=== PATIENT | male | born 1955 | race Caucasian/White ===

== ENCOUNTER 2018-12-15 04:05 | Emergency (ER) | payer OTHER, SELFPAY ==
[2018-12-15 04:05] VITALS: BP 139/94; PULSE 80; RESP 16; TEMP 36.6; O2SAT 97; BMI 32.1
--- NOTE | 2018-12-15 04:12 | ED.GENADULT ---
HPI - General Adult General Chief complaint: Neck Pain/Injury Stated complaint: head/ neck pain Time Seen by Provider: 12/15/18 04:07 Source: patient Mode of arrival: ambulatory Limitations: no limitations History of Present Illness HPI narrative: 63 year old male here for evaluation of right posterior neck pain. states that has been going on for the past couple days. It is worse to touch but not was worse when he moves his head. No fevers. He did think that it started in his right ear but now his right ear has no symptoms. He also has a rash on his chin on the right-hand side. He states this is ?uncomfortable? he did state that it started as blisters. Has been taken some Advil but no other interventions prior to arrival Related Data Previous Rx's Medication Instructions Recorded acyclovir 800 mg PO 5XD 7 Days #35 tab 12/15/18 Review of Systems Constitutional Constitutional: Denies fever(s) and Denies headache(s) ENT Ears, Nose, Mouth, and Throat: Denies headache(s), Reports neck pain and Denies sore throat Cardiovascular Cardiovascular: Denies chest pain and Denies dyspnea Respiratory Respiratory: Denies dyspnea Gastrointestinal Gastrointestinal: Denies abdominal pain Genitourinary Genitourinary: Denies difficulty urinating Musculoskeletal Musculoskeletal: Denies myalgias, Denies arthralgias and Reports neck pain Integumentary/Breasts Skin/Breast: Reports rash Neurologic Neurologic: Denies behavioral changes and Denies headache(s) Psychiatric Psychiatric: Denies behavioral changes Hematologic/Lymphatic Hematologic/Lymphatic: Denies easy bleeding and Denies easy bruising [facility] Medical History Patient denies medical problems (Acute) Family History (Updated 02/08/15 @ 00:00 by CARLOTTA Frost) Brother Age: 62 Type 2 diabetes mellitus without complication Mother Age: 87 Type 2 diabetes mellitus with complication Social History Smoking Status: Never smoker Family History (Updated 02/08/15 @ 00:00 by CARLOTTA Frost) Brother Age: 62 Type 2 diabetes mellitus without complication Mother Age: 87 Type 2 diabetes mellitus with complication Social History (Reviewed 12/15/18 @ 04:44 by JUDITH Gutierrez Smoking Status: Never smoker Exam Initial Vital Signs Initial Vital Signs: Vital Signs Temperature 97.8 F 12/15/18 04:05 Pulse Rate 80 12/15/18 04:05 Respiratory Rate 16 12/15/18 04:05 Blood Pressure 139/94 H 12/15/18 04:05 Pulse Oximetry 97 12/15/18 04:05 Const General: cooperative, healthy appearing, comfortable, well developed, well groomed and No acute distress Orientation: alert, awake and oriented x3 HENMT Head: normal to inspection Ears: TM's normal bilaterally Nose: external nose normal Mouth: oral mucosae normal Neck Lymphatic: lymphadenopathy (Occipital) Resp Effort & Inspection: normal respiratory effort Auscultation: clear to auscultation bilaterally Cardio Rate: regular rate Skin Other: Patient with what appears to be a vesicular rash under his chin on the right side. He also has a vesicular rash above his right ear. Neuro General: alert and awake Cognition: normal cognition Speech: speech normal Extrem General: normal to inspection and capillary refill normal Course Vital Signs Vital signs: Vital Signs - 8 hr 12/15/18 04:05 Temperature 97.8 F Pulse Rate 80 Respiratory Rate 16 Blood Pressure 139/94 H Pulse Oximetry 97 Medical Decision Making MDM Narrative Medical decision making narrative: He is nontoxic appearing. His neck pain appears to be either musculoskeletal or lymphadenopathy in the occipital region on the right. He does have a rash under his chin on the right and above his right ear which is fairly consistent with shingles. Mildly hesitation is that and does not seem to be uncomfortable for him. I feel that given the possibility of the occipital lymphadenopathy which would suggest an infection in the look of the rash that starting him on antiviral medications is warranted. I did discuss this with him and he expressed agreement. He does not appear to have any lesions in his right ear. We discussed return precautions and follow-up instructions. He expressed understanding and agreement with plan. Discharge Plan Departure Patient Disposition: Home Clinical Impression: Lymphadenopathy Shingles outbreak Qualifiers: Herpes zoster complications: without complications Qualified Code(s): B02.9 - Zoster without complications Discharge Date/Time: 12/15/18 04:37 Instructions: DI for Shingles, DI for Lymphadenopathy Activity Restrictions/Additional Instructions: You can continue with the nonsteroidal anti-inflammatories such as Advil. I would also recommend you start on the shingles medication like we discussed. Contact her primary doctor for follow-up. Return to the emergency department for any new or worsening symptoms Prescriptions: New acyclovir 800 mg tablet 800 mg PO 5XD 7 Days Qty: 35 RF: 0 Referrals: Justin Santizo MD [Primary Care Provider] -
== END 2018-12-15 04:37 | disposition home or self-care (01) ==
PROVIDERS: Emergency Provider Emergency Medicine; Family Provider Family Medicine; PCP Family Medicine
DX: B02.9 Zoster without complications (principal); R59.0 Localized enlarged lymph nodes
CPT/HCPCS: 99282

== ENCOUNTER → 2019-03-06 13:55 | Outpatient (CLI) | payer OTHER, SELFPAY ==
[2019-03-06 15:27] LABS: Alanine Aminotransferase 31 IU/L (<50); Albumin 4.1 g/dL (3.5-5.0); Albumin Globulin Ratio 1.5 (1.0-2.8); Alkaline Phosphatase 105 U/L (38-126); Aspartate Aminotransferase 27 IU/L (17-59); Bilirubin Total 0.4 mg/dL (0.2-1.3); Blood Urea Nitrogen 15 mg/dL (9-20); Carbon Dioxide 23 mmol/L (22-32); Chloride 105 mmol/L (98-107); Cholesterol 274 mg/dL (140-199); Estimated Glomerular Filt Rate > 60.0 mL/min (>60); Globulin 2.7 g/dL (1.7-4.1); Glucose 125 mg/dL (80-110); HDL Cholesterol 30 mg/dL (40-60); HEMOLYSIS < 15 (0-50); Potassium 4.2 mmol/L (3.4-5.1); Sodium 139 mmol/L (137-145); Total Protein 6.8 g/dL (6.3-8.2); Triglycerides 488 mg/dL (35-150)
[2019-03-06 15:58] LABS: Prostate Specific Antigen Scrn 4.91 ng/mL (0.1-4.0); TSH w/ Reflex to FT4 2.57 uIU/mL (0.47-4.68)
[2019-03-06 16:07] LABS: Vitamin D 25 Hydroxy (D3) 16.4 ng/mL (30.0-100.0)
== END ==
PROVIDERS: PCP Student in an Organized Health Care Education/Training Program; Visit Provider Student in an Organized Health Care Education/Training Program
DX: Z12.5 Encounter for screening for malignant neoplasm of prostate (principal); E78.2 Mixed hyperlipidemia; I49.3 Ventricular premature depolarization; R00.0 Tachycardia, unspecified; E55.9 Vitamin D deficiency, unspecified
CPT/HCPCS: 36415; 80053; 80061; 82306; 84443; G0103

== ENCOUNTER → 2021-08-03 09:19 | Outpatient (CLI) | payer OTHER, SELFPAY ==
[2021-08-03 10:52] LABS: Add Manual Diff / Slide Review NO; Basophils Absolute Auto 100 /uL (0-100); Eosinophils Absolute Auto 500 /uL (0-450); Eosinophils Percent Auto 6.3 % (2-4); Hematocrit 40.6 % (41-53); Lymphocytes Absolute Auto 1300 /uL (1100-4500); Lymphocytes Percent Auto 15.8 % (25-40); Mean Corpuscular HGB Conc 34.4 % (30-36); Mean Corpuscular Hemoglobin 28.7 PG (26-34); Mean Corpuscular Volume 83.5 fL (80-100); Monocytes Absolute Auto 600 /uL (0-900); Monocytes Percent Auto 7.8 % (3-14); Neutrophils Absolute Auto 5500 /uL (1500-7000); Neutrophils Percent Auto 69.1 % (50-75); Platelet Count 217 X10^3/uL (150-400); Red Blood Cell Count 4.86 X10^6/uL (4.5-5.9); Red Cell Distribution Width 14.6 % (11.6-14.8)
[2021-08-03 11:08] LABS: Hemoglobin A1C% w Est Avg Glu 6.2 % (4.0-6.0)
[2021-08-03 11:19] LABS: Albumin 3.9 g/dL (3.5-5.0); BUN Creatinine Ratio 15.7 (6-22); Blood Urea Nitrogen 17 mg/dL (9-20); Calcium 8.9 mg/dL (8.4-10.2); Carbon Dioxide 25 mmol/L (22-32); Chloride 107 mmol/L (98-107); Cholesterol 257 mg/dL (140-199); Estimated Glomerular Filt Rate > 60 mL/min (>60); Glucose 96 mg/dL (80-110); HDL Cholesterol 33 mg/dL (40-60); HEMOLYSIS < 15 (0-50); LDL Cholesterol Calculated 148 mg/dL (<100); Potassium 4.1 mmol/L (3.4-5.1); Sodium 140 mmol/L (137-145); Triglycerides 380 mg/dL (35-150)
[2021-08-03 11:25] LABS: NT-proBNP (BNP-Adult 18+) 15 pg/mL (<125)
[2021-08-03 11:31] LABS: Vitamin D 25 Hydroxy (D3) 27.8 ng/mL (30.0-100.0)
[2021-08-03 11:47] LABS: Prostate Specific Antigen Scrn 7.34 ng/mL (0.1-4.0)
== END ==
PROVIDERS: PCP Student in an Organized Health Care Education/Training Program; Referring Provider Student in an Organized Health Care Education/Training Program; Visit Provider Student in an Organized Health Care Education/Training Program
DX: E55.9 Vitamin D deficiency, unspecified (principal); E78.2 Mixed hyperlipidemia; R60.9 Edema, unspecified; R73.9 Hyperglycemia, unspecified; R97.20 Elevated prostate specific antigen [PSA]; Z12.5 Encounter for screening for malignant neoplasm of prostate
CPT/HCPCS: 36415; 80048; 80061; 82040; 82306; 83036; 83880; 85025; G0103

== ENCOUNTER → 2021-12-25 09:40 | Outpatient (CLI) | payer MEDICARE, SELFPAY ==
[2021-12-25 12:58] LABS: Prostate Specific Antigen 7.78 ng/mL (0.10-4.00)
== END ==
PROVIDERS: PCP Student in an Organized Health Care Education/Training Program; Referring Provider Specialist; Visit Provider Specialist
DX: R97.20 Elevated prostate specific antigen [PSA] (principal)
CPT/HCPCS: 36415; 84153

== ENCOUNTER → 2021-12-28 08:49 | Outpatient (CLI) | payer MEDICARE, SELFPAY ==
[2021-12-28 09:42] LABS: COVID19 -Nasal RAPID Negative (Negative)
== END ==
PROVIDERS: PCP Student in an Organized Health Care Education/Training Program; Visit Provider Surgery
DX: Z20.822 Contact with and (suspected) exposure to COVID-19 (principal); Z01.812 Encounter for preprocedural laboratory examination
CPT/HCPCS: 87635; C9803

== ENCOUNTER 2021-12-29 09:20 | Day surgery (SDC) | payer MEDICARE, SELFPAY ==
--- NOTE | 2021-12-29 | PATH_ITS ---
[facility] Accession Number: [id number] . 01 Material submitted: . PART A: colon - CECAL POLYP PART B: rectum - RECTAL POLYP . 01 Diagnosis: A. Cecal Polyp, Biopsy: Tubular adenoma. . B. Rectal Polyp, Biopsy: Tubulovillous adenoma. Additional polypoid fragment of inflamed granulation tissue. No high-grade dysplasia or malignancy. MRV 01/03/2022 1328 Local . 01 Electronically signed: . Quin Lucero MD, Pathologist NPI- [id number] . 01 Gross description: . Part A: CECAL POLYP: Received in formalin is 1 fragment(s) of allen, soft tissue measuring 0.8 x 0.1 x 0.1 cm submitted entirely in 1 cassette(s) Part B: RECTAL POLYP: Received in formalin are 2 fragment(s) of allen, soft tissue measuring 0.7 x 0.5 x 0.5 cm to 0.4 x 0.3 x 0.2 cm submitted entirely in 1 cassette(s) /CPE 01/02/2022 0534 Local . 01 Pathologist provided ICD-10: D12.0, D12.8 . 01 CPT . 336574, 019776 Specimen Comment: A courtesy copy of this report has been sent to [facility] Performed at: 01 [facility] [address] [place] [address] [address], [place], [place] [id number] MD Nelson Acosta MD Phone: [phone]
[2021-12-29 09:42] VITALS: BMI 34.7
[2021-12-29 09:48] VITALS: BP 129/80; PULSE 78; RESP 16; TEMP 36.4; O2SAT 95
[2021-12-29] MEDS: LACTATED RINGERS 1,000 ML 84 ML IV ×2 (09:49→10:01)
--- NOTE | 2021-12-29 09:54 | P.HP_ITS ---
History of Present Illness History of Present Illness Chief complaint: Colonoscopy - screening Narrative: Mr. Cha presents for a screening colonoscopy today. he denies bleeding from below or any family history of colon cancer. He denies constipation but he recalls that he has had chronic diarrhea for several years running and never been any offered any explanation or if treatment that he felt was serious. There are no family history of bleeding or blood clotting disorders or problems with anesthesia he had Anesthesia when he was 15 years old for a nose surgery otherwise never had surgery. Patient History Medical History BPH w urinary obs/LUTS Male circumcision Rosacea (07/18/15) Seborrheic keratosis (07/18/15) Skin tag (07/18/15) Family & Social History Family History Brother Age: 65 Type 2 diabetes mellitus without complication Mother Age: 90 Type 2 diabetes mellitus with complication FH: CVA (cerebrovascular accident) Diabetes mellitus Father CAD in [place] artery Grandfather Cancer Social History: household members spouse Tobacco & Substance use: Smoking Status Never smoker alcohol intake current alcohol intake frequency holiday/special occasion Substance Use Type does not use Meds Home Medications and Allergies Home Medications Medication Instructions Recorded Confirmed Type aspirin 81 mg tablet,delayed 81 mg PO DAILY 08/04/21 12/29/21 History release (Adult Low Dose Aspirin) pravastatin 20 mg tablet 20 mg PO BEDTIME #90 tabs 09/11/21 12/29/21 Rx tamsulosin 0.4 mg capsule 0.4 mg PO BEDTIME #90 caps 09/21/21 12/29/21 Rx Allergies Allergy/AdvReac Type Severity Reaction Status Date / Time No Known Drug Allergies Allergy Verified 12/29/21 09:42 Exam Vital Signs (past 8 hours): - 12/29/21 09:48 Temperature 97.6 F Pulse Rate 78 Respiratory Rate 16 Blood Pressure 129/80 Pulse Oximetry 95 Oxygen Delivery Method Room Air Oxygen Delivery Method Room Air Const General: cooperative, healthy appearing and comfortable [facility] Head: normal to inspection Eyes General: appearance normal, both eyes and all related structures Neck Other: thick Resp Effort & Inspection: normal respiratory effort and able to speak in complete sentences Cardio Rate: regular rate GI Inspection: normal to inspection, large pannus and obesity Palpation: soft and No tender Assessment & Plan Assessment and plan (1) Obesity (BMI 35.0-39.9 without comorbidity): Status: Acute (2) Obstructive sleep apnea: Status: Acute (3) Screening for colon cancer: Status: Acute Plan I discussed the risks benefits and alternatives to screening colonoscopy under conscious sedation. The patient has obstructive sleep apnea and the risks of conscious sedation were discussed as well as the risks of colonoscopy including but not limited to perforation of the colon requiring surgery to repair. Patient understands the risks the benefits I discussed the benefits additionally at length in terms of screening for colon cancer prevention of colon cancer and treatment for early stage colon cancer with intent to cure. He understood the risks benefits and alternatives head and had no other questions. He did not find the prep pleasant but tolerated it well and would like to proceed. Time Spent With Patient Critical Care time: I spent a total of [] minutes of critical care time on this patient's care today; this time is exclusive of procedural time.
[2021-12-29] MEDS: MIDAZOLAM 5 MG/5 ML VIAL 4 MG IV (10:28)
[2021-12-29] MEDS: fentaNYL 100 MCG/2 ML INJ 150 MCG IV (10:53)
[2021-12-29] MEDS: MIDAZOLAM 5 MG/5 ML VIAL 1 MG IV (11:02)
[2021-12-29 11:44] VITALS: BP 130/84; PULSE 71; RESP 12; TEMP 36.9; O2SAT 96
--- NOTE | 2021-12-29 11:46 | PM.OP.COLON ---
Operative Date/Time/Diagnoses Date of procedure: 12/29/21 Pre-op diagnosis: screening colonoscopy Post-op diagnosis: other (diverticulosis and colon polyps) Procedure & Clinicians Same procedure as scheduled: Yes Indications: 66-year-old male presents for screening colonoscopy he has no alarming symptoms and no family history of colon cancer. Surgeon: Anna Winter Procedure Notes Procedure in detail: Patient taken to the endoscopy suite and placed in a left lateral decubitus position anesthesia was induced with 5 of Versed and 150 of fentanyl total for out throughout the procedure patient the patient was comfortable throughout prior to induction of anesthesia a time-out was performed. Digital rectal exam was performed and found normal this colonoscope was introduced into the colon and advanced throughout the colon with some difficulty entering into the cecum however with placing the patient in a supine position I was able to enter. A photograph was taken. A very small polyp was seen in the cecum and sampled with a biopsy forceps. Withdrawal then took a total of 37 minutes but the majority of the withdrawal time was used in the process of capturing a large rectal polyp. I did withdraw slowly enough to examine the remainder of the colon very carefully and did not see any other areas of concern. There were scattered diverticula throughout the sigmoid colon. The rectal colon polyp was snared with hot snare and 2 separate pieces were taken and biopsied but I examined the biopsy location and it appeared hemostatic at the end of the case I did not see a large amount of polyp left over however this was at least a 1.2 cm size of polyp. This will be sent to pathology. The patient tolerated the procedure well and went in good condition to the postoperative care unit Scope withdrawal time: 37 Sedation minutes: 83 Findings: divertiulosis and polyp(s) Specimen(s): other (1. Small Cecal polyp 2. Large rectal polyp) Complications: none Post-procedure Recommendations: Colonoscopy in 3 years Plan for aftercare: I recommend daily fiber supplements and a follow-up colonoscopy is required in 3 years given the size of the rectal polyp. This was discussed with Michelle by phone. Disposition: PACU
[2021-12-29 11:49] VITALS: BP 132/87; PULSE 67; RESP 16; O2SAT 95
[2021-12-29 11:53] VITALS: BP 131/79; PULSE 77; RESP 19; TEMP 36.7; O2SAT 94
== END 2021-12-29 12:20 | disposition home or self-care (01) ==
PROVIDERS: PCP Student in an Organized Health Care Education/Training Program; Referring Provider Surgery; Visit Provider Surgery
PROC: 0DJD8ZZ Inspection of Lower Intestinal Tract, Via Natural or Artificial Opening Endoscopic (ICD-10-PCS; CPT 45378; principal; 2021-12-29 10:45)
DX: Z12.11 Encounter for screening for malignant neoplasm of colon (principal); K57.30 Diverticulosis of large intestine without perforation or abscess without bleeding; D12.0 Benign neoplasm of cecum; D12.8 Benign neoplasm of rectum
CPT/HCPCS: 45385; 45380; 99152; 99153; J2250; J3010

== ENCOUNTER → 2022-02-20 13:47 | Outpatient (CLI) | payer MEDICARE, SELFPAY ==
[2022-02-21 07:42] LABS: PSA Free % 14.1 % (.); PSA, Total 7.8 ng/mL (0.0-4.0)
== END ==
PROVIDERS: PCP Student in an Organized Health Care Education/Training Program; Referring Provider Specialist; Visit Provider Specialist
DX: R97.20 Elevated prostate specific antigen [PSA] (principal)
CPT/HCPCS: 36415; 84153; 84154

== ENCOUNTER → 2024-07-01 07:14 | Outpatient (CLI) | payer MEDICARE, SELFPAY ==
[2024-07-01 07:57] LABS: Add Manual Diff / Slide Review NO; Basophils Absolute Auto 100 /uL (0-100); Basophils Percent Auto 1.2 % (0-2); Eosinophils Absolute Auto 500 /uL (0-450); Eosinophils Percent Auto 7.3 % (2-4); Hematocrit 41.2 % (41-53); Hemoglobin 14.2 g/dL (13.5-17.5); Lymphocytes Absolute Auto 1100 /uL (1100-4500); Lymphocytes Percent Auto 15.4 % (25-40); Mean Corpuscular HGB Conc 34.4 % (30-36); Mean Corpuscular Hemoglobin 29.4 PG (26-34); Mean Corpuscular Volume 85.5 fL (80-100); Monocytes Absolute Auto 600 /uL (0-900); Monocytes Percent Auto 7.7 % (3-14); Neutrophils Absolute Auto 5100 /uL (1500-7000); Neutrophils Percent Auto 68.4 % (50-75); Platelet Count 234 X10^3/uL (150-400); Red Blood Cell Count 4.82 X10^6/uL (4.5-5.9); White Blood Cell Count 7.4 X10^3/uL (4.5-11.0)
[2024-07-01 08:06] LABS: Hemoglobin A1C% w Est Avg Glu 7.6 % (4.0-6.0)
[2024-07-01 08:20] LABS: Alanine Aminotransferase 42 IU/L (<50); Albumin 3.9 g/dL (3.5-5.0); Albumin Globulin Ratio 1.5 (1.0-2.8); Alkaline Phosphatase 99 U/L (38-126); Aspartate Aminotransferase 34 IU/L (17-59); BUN Creatinine Ratio 12.6 (6-22); Bilirubin Total 0.6 mg/dL (0.2-1.3); Blood Urea Nitrogen 14 mg/dL (9-20); Calcium 9.2 mg/dL (8.4-10.2); Carbon Dioxide 24 mmol/L (22-32); Chloride 104 mmol/L (98-107); Cholesterol 274 mg/dL (140-199); Estimated Glomerular Filt Rate > 60 mL/min (>60); Globulin 2.6 g/dL (1.7-4.1); Glucose 174 mg/dL (80-110); HDL Cholesterol 33 mg/dL (40-60); HEMOLYSIS < 15 (0-50); LDL Cholesterol Calculated 171 mg/dL (<100); Potassium 4.3 mmol/L (3.4-5.1); Sodium 135 mmol/L (137-145); Total Protein 6.5 g/dL (6.3-8.2); Triglycerides 349 mg/dL (35-150); Uric Acid 6.6 mg/dL (3.5-8.5)
== END ==
PROVIDERS: PCP Family Medicine; Referring Provider Family Medicine; Visit Provider Family Medicine
DX: E78.2 Mixed hyperlipidemia (principal); R73.03 Prediabetes; Z12.5 Encounter for screening for malignant neoplasm of prostate; Z68.37 Body mass index [BMI] 37.0-37.9, adult; R60.9 Edema, unspecified; M79.673 Pain in unspecified foot; E66.9 Obesity, unspecified; Z76.89 Persons encountering health services in other specified circumstances
CPT/HCPCS: 36415; 80053; 80061; 83036; 84550; 85025; G0103

== ENCOUNTER → 2024-11-06 09:24 | Outpatient (CLI) | payer MEDICARE, SELFPAY ==
[2024-11-08 08:12] LABS: PSA, Total 12.6 ng/mL (0.0-4.0)
== END ==
LOC: LAB 09:25
PROVIDERS: PCP Family Medicine; Referring Provider Urology; Visit Provider Urology
DX: R97.20 Elevated prostate specific antigen [PSA] (principal)
CPT/HCPCS: 36415; 84153; 84154

== ENCOUNTER → 2024-12-11 08:29 | Outpatient (CLI) | payer MEDICARE, SELFPAY ==
--- NOTE | 2024-12-11 08:31 | DI.MRI.S_ITS ---
PROCEDURE: MR PELVIC PROSTATE PROTOCOL INDICATIONS: 69 y/o M w/ elevated PSA, please eval TECHNIQUE: Coronal HASTE, axial T1 FSE with fat saturation, 3-plane nonbreath-hold T2 FSE. After the administration of contrast, dynamic axial, delayed axial and coronal VIBE or 2-D FLASH with fat saturation through the pelvis. Diffusion weighted imaging and ADC was performed. COMPARISON: None. FINDINGS: Image quality: Diffusion weighted and dynamic contrast enhanced images are diagnostic. Prostate: Gland size is 3.4 x 4.7 x 4.2 cm; ellipsoid gland volume is 34.9 mL. PSA is 12.6. PSA density is 0.36. There is diffuse transition zone hypertrophy with mildly decreased T2 signal throughout the transition zone and inferiorly in the posterolateral peripheral zone bilaterally. A few nodular areas of decreased ADC signal, but no definite PI-RADS four or five lesions. One example is as follows: Lesion 1: Location: Right posterolateral transition zone at the mid gland to base level, diffusion sequence 25 image 12 corresponds to T2 sequence four image 12. A curvilinear focus best seen on diffusion, probably part of a BPH nodule. Size: 0.7 cm. T2W signal: Mildly hypointense, but similar to surrounding gland. DWI signal: Moderately hyperintense ADC signal: Moderately hypointense Enhancement: No Extracapsular extension: No PI-RADS score: Two Genitourinary system: Bladder wall thickness is normal. Distal ureters are non distended. Seminal vesicles and proximal vas deferens appear normal morphology. Bowel and peritoneum: Sigmoid diverticulosis. No pathologic free pelvic fluid. Inferior colon and small bowel loops are normal in caliber. Nodes and vessels: No pelvic or inguinal adenopathy by size criteria. Iliac vessels are normal in caliber. Soft tissues: Minimal right fat containing hernia. Bones: Marrow demonstrates normal overall signal, without lesions to suggest metastases. IMPRESSION: No PI-RADS four or PI-RADS five lesions for a targeted biopsy. Given high PSA density, random multi quadrant biopsy is recommended. No secondary signs of disease such as lymphadenopathy, contour abnormality, or osseous lesion. Dictated by: Karina Urbano M.D. on 12/11/2024 at 10:35 Approved by: Karina Urbano M.D. on 12/11/2024 at 10:58
== END ==
LOC: MRI 08:30
PROVIDERS: PCP Family Medicine; Referring Provider Urology; Visit Provider Urology
DX: N42.9 Disorder of prostate, unspecified (principal); K57.30 Diverticulosis of large intestine without perforation or abscess without bleeding; R97.20 Elevated prostate specific antigen [PSA]
CPT/HCPCS: 72197; A9579

== ENCOUNTER → 2025-03-22 07:54 | Outpatient (CLI) | payer MEDICARE, SELFPAY ==
[2025-03-22 08:51] LABS: Hemoglobin A1C% w Est Avg Glu 6.4 % (4.0-6.0)
== END ==
PROVIDERS: PCP Family Medicine; Referring Provider Family Medicine; Visit Provider Family Medicine
DX: E11.9 Type 2 diabetes mellitus without complications (principal)
CPT/HCPCS: 36415; 82043; 82570; 83036